=== PATIENT | female | born 2000 | race Caucasian/White ===

== ENCOUNTER 2018-02-09 14:15 | Emergency (ER) | payer OTHER ==
--- NOTE | 2018-02-09 14:51 | EDPHY ---
H & P Stated Complaint: N/V for past week, on zofran from [facility] [place] Time Seen by Provider: 02/09/18 14:51 - Personal History LMP (Females 10-55): Irregular - Medical/Surgical History Hx Asthma: No Hx Chronic Respiratory Disease: No Hx Diabetes: No Hx Cardiac Disease: No Hx Renal Disease: No Hx Cirrhosis: No Hx Alcoholism: No Hx HIV/AIDS: No Hx Splenectomy or Spleen Trauma: No Other PMH: none reported - Social History Smoking Status: Never smoked Constitutional: Initial Vital Signs Temperature (C) 37.1 C 02/09/18 14:18 Heart Rate 62 02/09/18 14:18 Respiratory Rate 18 02/09/18 14:18 Blood Pressure 123/84 H 02/09/18 14:18 O2 Sat (%) 94 02/09/18 14:18 O2 Delivery Mode Room Air Allergies/Adverse Reactions: No Known Allergies Allergy (Unverified 02/09/18 14:18) Home Medications: Medication Instructions Recorded Zofran 02/09/18 Medical Decision Making - Diagnostics Imaging Results: Imaging Impressions Abdomen Ultrasound 02/09/18 14:56 Impression: Plump spleen. Otherwise negative. A message was left for Stacia Blas at 3:57 PM. Imaging: Discussed imaging studies w/ rn call center Radiologist, I viewed and interpreted images myself ED Course/Re-evaluation: CHIEF COMPLAINT: Nausea and vomiting HISTORY OF PRESENT ILLNESS: The patient is a 17 y/o female complaining of nausea and vomiting from 6:00 to 8 :00 every day, onset 8 days ago. She initially thought this pain was due to anxiety from returning to school, but her symptoms did not improve. She went to [facility], where they prescribed her Zofran. However, the Zofran has not alleviated her symptoms. Last night she developed diarrhea, there was no blood present. Today she developed bilateral lower abdominal pain, which concerned her. Denies recent foreign travel or . Denies chest pain, shortness of breath, urinary complaints, numbness, paresthesias, fever. REVIEW OF SYSTEMS: A 10 point review of systems was performed and is negative with the exception of the elements mentioned in the history of present illness. PHYSICAL EXAM: HR, BP, O2 Sat, RR. Temp noted General Appearance: Alert, well hydrated, appropriate, and non-toxic appearing. Head: Atraumatic without scalp tenderness or obvious injury Eyes: Pupils equal, round, reactive to light and accommodation, EOMI, no trauma , no injection. Ears: Clear bilaterally, no perforation, normal landmarks Nose: Atraumatic, no rhinorrhea, clear. Throat: There is no erythema or exudates, no lesions, normal tonsils, mucus membranes moist. Neck: Supple, nontender, no lymphadenopathy. Respiratory: No retractions, no distress, no wheezes, and no accessory muscle use. Lungs are clear to auscultation bilaterally. Cardiovascular: Regular rate and rhythm, no murmurs, rubs, or gallops. Bilateral carotid, radial, dorsalis pedis, and posterior tibial pulses intact. Good capillary refill all extremities. Gastrointestinal: Abdomen is soft, nontender, non-distended, no masses, no rebound, no guarding, no peritoneal signs. Musculoskeletal: Normal active ROM of all extremities, atraumatic. Neurological: Alert, appropriate, and interactive. The patient has normal DTRs and non-focal cranial nerves, motor, sensory, and cerebellar exam. Skin: No rashes, good turgor, no nodules on palpation. Past medical history: Denies Past surgical history: Denies Family history: Denies Social history: Originally from [place], student at , friend at bedside DIAGNOSTICS/PROCEDURES/CRITICAL CARE TIME: Abdominal US: Slightly enlarged spleen, otherwise negative DIFFERENTIAL DIAGNOSIS: The differential diagnosis for the patient's nausea and vomiting included but was not limited to splenomegaly, gastroenteritis, gastritis, appendicitis, and medication side effect. MEDICAL DECISION MAKING: The patient is a 17 y/o female presenting with nausea and vomiting from 6:00 to 8:00 every day associated with one episode of diarrhea and abdominal pain, onset 8 days ago. She has a benign exam. Labs and abdominal US ordered; 1L IV NS , 20mg IV Pepcid, and 4mg IV Zofran administered. 1606: I spoke with Dr. Hilliard, radiologist, who reports that the patient has a slightly enlarged spleen. Her abdominal US is otherwise negative. 1620: Reassessed patient and discussed laboratory and ultrasound findings. I have advised her to follow up with a mechanical process engineer for her symptoms. I have prescribed her 10mg PO Propranolol for anxiety due to school. Return precautions provided; patient is comfortable with this plan. - Data Points Laboratory Results: Laboratory Results 02/09/18 15:10 02/09/18 15:10 02/09/18 02/09/18 02/09/18 15:10 15:10 15:10 WBC 6.49 10^3/uL 10^3/uL (3.80-9.50) RBC 4.55 10^6/uL 10^6/uL (4.18-5.33) Hgb 13.6 g/dL g/dL (12.6-16.3) Hct 38.9 % % (38.0-47.0) MCV 85.5 fL fL (81.5-99.8) MCH 29.9 pg pg (27.9-34.1) MCHC 35.0 g/dL g/dL (32.4-36.7) RDW 12.4 % % (11.5-15.2) Plt Count 279 10^3/uL 10^3/uL (150-400) MPV 9.5 fL fL (8.7-11.7) Neut % (Auto) 59.5 % % (39.3-74.2) Lymph % (Auto) 29.6 % % (15.0-45.0) Anderson % (Auto) 8.8 % % (4.5-13.0) Eos % (Auto) 0.9 % % (0.6-7.6) Baso % (Auto) 0.9 % % (0.3-1.7) Nucleat RBC Rel Count 0.0 % % (0.0-0.2) Absolute Neuts (auto) 3.86 10^3/uL 10^3/uL (1.70-6.50) Absolute Lymphs (auto) 1.92 10^3/uL 10^3/uL (1.00-3.00) Absolute Monos (auto) 0.57 10^3/uL 10^3/uL (0.30-0.80) Absolute Eos (auto) 0.06 10^3/uL 10^3/uL (0.03-0.40) Absolute Basos (auto) 0.06 10^3/uL 10^3/uL (0.02-0.10) Absolute Nucleated RBC 0.00 10^3/uL 10^3/uL (0-0.01) Immature Gran % 0.3 % % (0.0-1.1) Immature Gran # 0.02 10^3/uL 10^3/uL (0.00-0.10) Sodium 140 mEq/L mEq/L (135-145) Potassium 3.9 mEq/L mEq/L (3.3-5.0) Chloride 108 mEq/L mEq/L (97-110) Carbon Dioxide 23 mEq/l mEq/l (22-31) Anion Gap 9 mEq/L mEq/L (8-16) BUN 4 mg/dL L mg/dL (7-23) Creatinine 0.7 mg/dL mg/dL (0.6-1.0) Estimated GFR > 60 Glucose 81 mg/dL mg/dL (70-100) Calcium 9.4 mg/dL mg/dL (8.5-10.4) Total Bilirubin 0.6 mg/dL mg/dL (0.1-1.4) Conjugated Bilirubin 0.2 mg/dL mg/dL (0.0-0.5) Unconjugated Bilirubin 0.4 mg/dL mg/dL (0.0-1.1) AST 22 IU/L IU/L (14-46) ALT 23 IU/L IU/L (9-52) Alkaline Phosphatase 77 IU/L IU/L (38-126) Total Protein 7.4 g/dL g/dL (6.3-8.2) Albumin 4.4 g/dL g/dL (3.5-5.0) Lipase 39 IU/L IU/L (23-300) Beta HCG, Qual NEGATIVE Medications Given: Discontinued Medications Sodium Chloride (Ns) 1,000 mls @ 0 mls/hr IV EDNOW ONE; Wide Open PRN Reason: Protocol Stop: 02/09/18 14:57 Last Admin: 02/09/18 15:19 Dose: 1,000 mls Famotidine/Sodium Chloride (Pepcid 20 Mg (Premix)) 50 mls @ 200 mls/hr IV EDNOW ONE Stop: 02/09/18 15:10 Last Admin: 02/09/18 15:19 Dose: 50 mls Ondansetron HCl (Zofran) 4 mg IVP EDNOW ONE Stop: 02/09/18 14:57 Last Admin: 02/09/18 15:20 Dose: 4 mg Departure - Departure Disposition: Home, Routine, Self-Care Clinical Impression: Splenomegaly Nausea and vomiting Qualifiers: Vomiting type: unspecified Vomiting Intractability: intractable Qualified Code( s): R11.2 - Nausea with vomiting, unspecified Condition: Good Instructions: Acute Nausea and Vomiting (ED), Abdominal Pain (ED) Additional Instructions: 1. Increase fluid intake. 2. Follow-up with your primary doctor within 72 hours. 3. Follow-up with a mechanical process engineer; you have been referred to Dr. Gaines. 4. Return to the Emergency Department for fever, chest pain, shortness of breath , increasing pain, or other worsening of condition. 5. Take Propranolol for anxiety before bed, as prescribed. Referrals: Blane Gaines MD [Medical Doctor] - As per Instructions Report Scribed for: Omar Darden Report Scribed by: Deb Damico Date of Report: 02/09/18 Time of Report: 14:53
[2018-02-09] MEDS ORDERED: FAMOTIDINE 20 MG/NACL 50 ML IV ONE (14:56)
[2018-02-09] MEDS ORDERED: NS 1,000 ML IV ONE (14:56)
[2018-02-09] MEDS ORDERED: ONDANSETRON 4 MG/2 ML VIAL IVP ONE (14:56)
[2018-02-09 15:20] LABS: PLATELET COUNT 279 10^3/uL (150-400)
[2018-02-09 16:32] VITALS: BP 125/79
== END 2018-02-09 16:32 | disposition home or self-care (01) ==
DX: R11.2 Nausea with vomiting, unspecified (principal); R16.1 Splenomegaly, not elsewhere classified; E86.9 Volume depletion, unspecified
CPT/HCPCS: 96365; J2405

== ENCOUNTER → 2018-09-05 | Outpatient (CLI) | payer OTHER ==
[~2018-09-05] MED LIST: IOPAMIDOL (ISOVUE-300) 100 ML BTL ONE
== END ==
LOC: FIMAGING 08:19
PROVIDERS: ATTEND Internal Medicine Endocrinology, Diabetes & Metabolism
DX: E34.9 Endocrine disorder, unspecified (principal); E27.9 Disorder of adrenal gland, unspecified; R53.83 Other fatigue
CPT/HCPCS: Q9967